=== PATIENT | male | born 1950 ===

== ENCOUNTER 2018-06-18 19:10 | Emergency (ER) | payer MEDICARE, OTHER ==
[2018-06-18 19:35] VITALS: BP 121/63; PULSE 73; TEMP 98; O2SAT 98
[2018-06-18] MEDS ORDERED: Tdap Vaccine 0.5 ml Vial (10-64 yrs) IM ONE ×2 (20:12→20:19)
--- NOTE | 2018-06-18 20:14 | C.PDOC ---
History Of Present Illness 67 y/o with niddm present to ED with laceration under right eyebrow, sustained around 9 am today. pt was moving boxes, caused metal shelf to hit him on right side head. pt did not fall down from blow, denies loc and neck pain. denies any change in vision, headache, nausea, vomiting or dizziness. last tdap unk. Time Seen by Provider: 06/18/18 19:30 Chief Complaint (Nursing): Abnormal Skin Integrity History Per: Patient History/Exam Limitations: no limitations Onset/Duration Of Symptoms: Hrs (10) Current Symptoms Are (Timing): Still Present Location Of Injury: Right: Face Quality Of Symptoms: Painful Severity: Mild Past Medical History Reviewed: Historical Data, Nursing Documentation, Vital Signs Vital Signs: Last Vital Signs Temp 98.0 F 06/18/18 19:29 Pulse 73 06/18/18 19:29 Resp 18 06/18/18 19:29 BP 121/63 06/18/18 19:29 Pulse Ox 98 06/18/18 19:29 - Medical History PMH: Diabetes, HTN Denies: Chronic Kidney Disease Family History: States: Unknown Family Hx - Social History Hx Alcohol Use: No Hx Substance Use: No - Immunization History Hx Tetanus Toxoid Vaccination: No Hx Influenza Vaccination: No Hx Pneumococcal Vaccination: No Review Of Systems Constitutional: Negative for: Fever, Chills Eyes: Positive for: Other (laceration right eyelid). Negative for: Pain, Vision Change ENT: Negative for: Ear Pain, Nose Pain Musculoskeletal: Negative for: Neck Pain, Shoulder Pain, Back Pain Skin: Positive for: Other (laceration right eyelid) Neurological: Negative for: Weakness, Numbness, Altered Mental Status, Headache, Dizziness Physical Exam - Physical Exam Appears: Non-toxic, No Acute Distress Skin: Warm, Dry, Other (1 cm horizontal laceration distal to right lateral eyebrow. mild ecchymosis and swelling to right upper lid ) Head: Normacephalic, Laceration (1 cm laceration distal to right lateral eyebrow) Eye(s): bilateral: Normal Inspection, PERRL, EOMI, right: Other (no orbital tenderness, ecchymosis right upper eyelid) Ear(s): Bilateral: TM Obscured By Wax, Other (no kinney sign) Neck: No Midline Cervical Tenderness, No Paracervical Tenderness, Supple Neurological/Psych: Oriented x3, Normal Speech, Normal Cognition, Normal Motor, Normal Sensation ED Course And Treatment O2 Sat by Pulse Oximetry: 98 Laceration - Laceration Repair right eyelid Wound Length (In cm): 1 Description Of Wound: Linear, Irregular Wound Cleansed With: Sterile Saline Wound Closure: Skin Glue Wound Complexity: Simple Medical Decision Making Medical Decision Making: pt with small laceration to right eyelid, sustarned 10+hours ago, update tdap, wound care, dermbond laceration. Disposition Counseled Patient/Family Regarding: Diagnosis, Need For Followup - Disposition Referrals: Billy Almanza MD [Staff Provider] - Disposition: HOME/ ROUTINE Disposition Time: 20:30 Condition: GOOD Additional Instructions: Do not touch glue; it will fall off by itself in a few days. Apply cold compresses (over a dish towel or washcloth) to right upper eye to help decrease swelling. Follow up with your doctor in a few days. Return to ER for any severe headache, nausea, vomiting, dizziness or any other concerns. Take Tylenol for pain if needed. Instructions: Laceration Repair With Glue (DC), Closed Head Injury (DC) Forms: [facility] ([place]ron[place]), General Discharge Instructions - Clinical Impression Clinical Impression: Right eyelid laceration, Closed head injury
[2018-06-18 20:50] VITALS: RESP 20
== END 2018-06-18 20:50 | disposition home or self-care (01) ==
LOC: C.ER 19:10
DX: S01.111A Laceration without foreign body of right eyelid and periocular area, initial encounter (principal); W22.8XXA Striking against or struck by other objects, initial encounter; Y92.9 Unspecified place or not applicable; Z23 Encounter for immunization